=== PATIENT | female | born 1960 | race Caucasian/White ===

== ENCOUNTER → 2023-12-22 14:32 | Outpatient (REF) | payer BC, SELFPAY | LOC: WDC 14:32 | PROVIDERS: ATTENDING PHYSICIAN Nurse Practitioner Family; FAMILY PHYSICIAN Family Medicine | DX: Z12.31 Encounter for screening mammogram for malignant neoplasm of breast (principal) | CPT/HCPCS: 77063; 77067 ==

== ENCOUNTER 2024-01-16 17:53 | Outpatient (RCR) | payer BC, SELFPAY | END 2024-01-16 23:59 | disposition home or self-care (01) | LOC: RPT 17:53 | PROVIDERS: ATTENDING PHYSICIAN Student in an Organized Health Care Education/Training Program; FAMILY PHYSICIAN Obstetrics & Gynecology | DX: M72.2 Plantar fascial fibromatosis (principal); M25.571 Pain in right ankle and joints of right foot; Z73.6 Limitation of activities due to disability; R26.9 Unspecified abnormalities of gait and mobility | CPT/HCPCS: 97110; 97112; 97140; 97161 ==

== ENCOUNTER 2024-02-21 07:56 | Outpatient (RCR) | payer MEDICARE, OTHER, SELFPAY | END 2024-02-21 23:59 | disposition home or self-care (01) | LOC: RPT 07:56 | PROVIDERS: ATTENDING PHYSICIAN Student in an Organized Health Care Education/Training Program; FAMILY PHYSICIAN Obstetrics & Gynecology | DX: M72.2 Plantar fascial fibromatosis (principal); M25.571 Pain in right ankle and joints of right foot; R26.9 Unspecified abnormalities of gait and mobility | CPT/HCPCS: 97110; 97112; 97140; 97161 ==

== ENCOUNTER 2024-02-28 09:03 | Outpatient (RCR) | payer MEDICARE, OTHER, SELFPAY | END 2024-02-28 23:59 | disposition home or self-care (01) | LOC: RPT 09:03 | PROVIDERS: ATTENDING PHYSICIAN Student in an Organized Health Care Education/Training Program; FAMILY PHYSICIAN Obstetrics & Gynecology | DX: M72.2 Plantar fascial fibromatosis (principal); M25.571 Pain in right ankle and joints of right foot; R26.89 Other abnormalities of gait and mobility; Z73.6 Limitation of activities due to disability | CPT/HCPCS: 97110; 97140 ==

== ENCOUNTER → 2024-12-24 13:21 | Outpatient (REF) | payer MEDICARE, OTHER, SELFPAY | LOC: WDC 13:21 | PROVIDERS: ATTENDING PHYSICIAN Family Medicine | DX: Z12.31 Encounter for screening mammogram for malignant neoplasm of breast (principal); M81.0 Age-related osteoporosis without current pathological fracture | CPT/HCPCS: 77063; 77067; 77080 ==

== ENCOUNTER → 2025-02-05 07:45 | Outpatient (REF) | payer MEDICARE, OTHER, SELFPAY ==
[2025-02-05 08:58] LABS: Hematocrit 43.0 % (37.0-47.0); Hemoglobin 14.5 g/dL (12.0-16.0); Mean Corp Hgb Conc. 33.7 g/dL (33.0-37.0); Mean Corpuscular Volume 92.5 fL (81.0-99.0); Nucleated Red Blood Cells % 0 %; Platelet Count 264 10^3/uL (130-400); Red Cell Dist. Width 11.9 % (11.5-14.5)
[2025-02-05 09:35] LABS: ALT (SGPT) 23 U/L (0-35); AST (SGOT) 22 U/L (14-36); Albumin 4.5 g/dl (3.5-5.0); Alkaline Phosphatase 62 U/L (38-126); Blood Urea Nitrogen 18 mg/dl (7-17); Calcium 9.4 mg/dl (8.4-10.2); Carbon Dioxide 30 mmol/L (22-30); Chloride 108 mmol/L (98-107); Glucose 101 mg/dl (70-99); HDL Cholesterol 86 mg/dl; LDL Cholesterol, Calculated 115 mg/dl; Potassium 4.0 mmol/L (3.5-5.1); Sodium 141 mmol/L (135-145); Total Protein 6.9 g/dl (6.3-8.2); Very Low Density Lipoprotein 11 mg/dl (0-30); eGFR > 60.00
[2025-02-05 10:04] LABS: TSH 1.96 uIU/ml (0.47-4.68)
[2025-02-05 10:49] LABS: Vitamin D, 25-OH*** 45.6 ng/mL (30-80)
== END ==
LOC: REG 07:45
PROVIDERS: ATTENDING PHYSICIAN Family Medicine
DX: Z00.00 Encounter for general adult medical examination without abnormal findings (principal); M81.0 Age-related osteoporosis without current pathological fracture; E78.2 Mixed hyperlipidemia; E55.9 Vitamin D deficiency, unspecified
CPT/HCPCS: 36415; 80053; 80061; 82306; 84439; 84443; 85025

== ENCOUNTER 2025-02-28 06:32 | Day surgery (SDC) | payer MEDICARE, OTHER, SELFPAY | END 2025-02-28 09:29 | disposition home or self-care (01) | LOC: GI 06:32 | PROVIDERS: ATTENDING PHYSICIAN Internal Medicine | DX: Z12.11 Encounter for screening for malignant neoplasm of colon (principal); D12.3 Benign neoplasm of transverse colon; K57.30 Diverticulosis of large intestine without perforation or abscess without bleeding; K64.9 Unspecified hemorrhoids; Z83.719 Family history of colon polyps, unspecified | CPT/HCPCS: 45385; 88305 ==

== ENCOUNTER → 2025-07-20 07:03 | Outpatient (REF) | payer MEDICARE, OTHER, SELFPAY | LOC: PAVMRI 07:03 | PROVIDERS: ATTENDING PHYSICIAN Student in an Organized Health Care Education/Training Program; FAMILY PHYSICIAN Family Medicine | DX: M25.571 Pain in right ankle and joints of right foot (principal) | CPT/HCPCS: 73721 ==